=== PATIENT | male | born 1980 | race African-American/Black ===

== ENCOUNTER 2018-01-16 12:24 | Emergency (ER) | payer OTHER, MEDICARE ==
[~2018-01-16] VITALS: Ht 200.7 cm; Wt 104.3 kg
[~2018-01-16 12:24] MED LIST: AMLODIPINE BESY10 M1 PO; ASPIRIN81 M4 PO; CARVEDILOL25 M1 PO; CRESTOR20 M2 PO; DILAUDID2 M1 PO; FERROUS SULFAT325 M3 PO; HUMALOG KW100 UNIT/1 SC; HYDROCHLOROTHIA25 M1 PO; LEVEMIR FL100 UNIT/1 SC; LISINOPRIL40 M1 PO; NEXIUM40 M1 PO; TRAZODONE HCL50 M1 PO
--- NOTE | 2018-01-16 12:51 | ED GENERAL ADULT ---
History of Present Illness General Chief Complaint: General Adult Stated Complaint: HYPERGLYCEMIA Source: patient, old records Exam Limitations: no limitations Vital Signs & Intake/Output Vital Signs & Intake/Output Vital Signs Date Time Temp Pulse Resp B/P B/P Pulse O2 O2 Flow FiO2 Mean Ox Delivery Rate 01/16 1651 93 Room Air 01/16 1619 98.6 89 20 153/91 93 Room Air 01/16 1231 98.7 101 18 173/106 97 Room Air Allergies Coded Allergies: tomato (Severe, ANAPHYLAXIS 01/14/18) pregabalin (From LYRICA) (Intermediate, AMS 01/14/18) atorvastatin (From LIPITOR) (LEUKOCYTOSIS 01/14/18) duloxetine (HALLUCINATIONS 01/14/18) heparin (porcine) (N/V 01/14/18) insulin isophane (NPH) (From HUMULIN N NPH U-100 INSULIN) (ITCHING 01/14/18) ketorolac (HIVES, RASH 01/14/18) naproxen (DIARRHEA 01/14/18) nitroglycerin (N/V 01/14/18) pineapple (TURNS TONGUE PURPLE 01/14/18) tramadol (N/V 01/14/18) hydromorphone (From DILAUDID) (Mild, NAUSEA 01/14/18) Reconcile Medications Amlodipine Besylate 10 MG TABLET 1 TAB PO DAILY HEART (Reported) Aspirin (Aspirin*) 81 MG TAB.CHEW 1 TAB PO DAILY HEART HEALTH (Reported) Carvedilol 25 MG TABLET 1 TAB PO BID HEART (Reported) Esomeprazole (Nexium) 40 MG CAPSULE.DR 1 CAP PO DAILY GI (Reported) Ferrous Sulfate 325 MG (65 MG IRON) TABLET 1 TAB PO DAILY IRON, VITAMIN ( Reported) Hydrochlorothiazide 25 MG TABLET 1 TAB PO DAILY WATER RETENTION (Reported) Hydromorphone HCl (Dilaudid) 2 MG TABLET 1 TAB PO Q8P PRN BACK PAIN Insulin Detemir (Levemir Flextouch) 100 UNIT/ML (3 ML) INSULN.PEN 6 UNITS SC QPM DIABETES (Reported) Insulin Lispro (Humalog Kwikpen U-100) 100 UNIT/ML INSULN.PEN 25 UNITS SC TID DIABETES (Reported) Lisinopril 40 MG TABLET 1 TAB PO DAILY HEART (Reported) Rosuvastatin Calcium (Crestor) 20 MG TABLET 1 TAB PO QPM CHOLESTEROL ( Reported) Trazodone HCl 50 MG TABLET 1 TAB PO QPM SLEEP (Reported) Triage Note: PT COMING FROM HOME. PER EMS PT STATED THAT HE TOOK HIS BG THIS AM AND THE METER READ "HIGH". PT REPORTS POLYURIA AND DECREASED APPETITE. PT ALSO REPORTS PAIN IN THE LOWER BACK X A FEW DAYS. Triage Nurses Notes Reviewed? yes HPI: This is a morbidly obese 37-year-old male with history of insulin-dependent diabetes complicated by frequent asymptomatic hyperglycemia, multiple lower limb amputations including a right AKA, left great toe amputation, prior VT, hypertension, hyperlipidemia, presented to the emergency department from home with hyperglycemia. Patient reports that he has been intermittently noncompliant with his home insulin regimen. He states he did not take insulin this morning. He does endorse some increased thirst and polyuria. He denies any dysuria or urgency. He has had no abdominal pain or nausea or vomiting. He denies any chest pain or difficulty breathing. Patient does complain of lower back pain, notes that he fell a few days ago and hit his lower back on the edge of the couch. He does not endorse any loss of consciousness, headache, neck pain, other injuries. He states that he came to the emergency department "the other day and got some Dilaudid and morphine for my pain; I would like that again today." He states that he has been using Tylenol at home without any relief. He lives in [place] but has sought care here in therapy because he is "done with those people at [facility] " Of note, patient had a negative stress echo in October. There were no ischemic changes. (Sandip Rodriguez MD) Past History Travel History Traveled to [place] past 21 day No Medical History Any Pertinent Medical History? see below for history Cardiovascular: hypertension, hyperlipidemia, myocardial infarction Musculoskeletal: chronic back pain Endocrine: diabetes Surgical History Surgical History: non-contributory Psychosocial History What is your primary language Kuwaiti Tobacco Use: Never used ETOH Use: denies use Illicit Drug Use: denies illicit drug use Family History Hx Contributory? No (Sandip Rodriguez MD) Review of Systems Review of Systems Constitutional: Reports: no symptoms. EENTM: Reports: no symptoms. Respiratory: Reports: no symptoms. Cardiovascular: Reports: no symptoms. GI: Reports: see HPI. Genitourinary: Reports: see HPI. Musculoskeletal: Reports: see HPI. Skin: Reports: no symptoms. Neurological/Psychological: Reports: see HPI. Hematologic/Endocrine: Reports: no symptoms. (Sandip Rodriguez MD) Physical Exam Physical Exam General Appearance: well developed/nourished, no apparent distress, awake, obese Head: atraumatic, normal appearance Eyes: Bilateral: normal appearance. Ears, Nose, Throat: normal pharynx, normal ENT inspection, hearing grossly normal Neck: supple, full range of motion Respiratory: chest non-tender, no respiratory distress, decreased breath sounds Cardiovascular: regular rate/rhythm Gastrointestinal: soft, non-tender Back: normal range of motion, vertebral tenderness Extremities: normal inspection, normal capillary refill, normal range of motion, no edema Neurologic/Psych: no motor/sensory deficits, awake, alert, oriented x 3, inventory checker II- XII nml as tested Skin: intact, warm/dry Comments: Well-appearing 37-year-old male, no acute distress. No increased respiratory rate. No odor of ketones. Neurologically intact and normal. Stump appears clean and dry with no obvious lesions. Left foot appears clean and dry with no obvious lesions. He has intact distal pulses. His abdomen is benign. Lungs are clear. Mucous membranes are moist. Core Measures ACS in differential dx? No CVA/TIA Diagnosis: No Sepsis Present: No Sepsis Focused Exam Completed? No (Sandip Rodriguez MD) Progress Differential Diagnoses I considered the following diagnoses in my evaluation of the patient: Clinically suspect hyperglycemia secondary to dietary indiscretion or undermedication. Low suspicion at this time for acute infectious process given lack of suggestive symptoms or signs on exam. Low suspicion also for acute ischemic/cardiopulmonary process. Patient did fall the other day and has low back pain, low suspicion for acute fracture, however will pursue x-ray with very low pretest probability. Suspicion for acute cauda equina or other spinal lesion. Plan of Care: Orders Procedure Date/time Status FingerStick- Glucose 01/16 1624 Active LACTIC ACID 01/16 1544 Complete EKG 01/16 1245 Active CULTURE,URINE 01/16 1244 Active URINALYSIS 01/16 1244 Complete LACTIC ACID 01/16 1244 Complete COMPREHENSIVE METABOLIC PANEL 01/16 1244 Complete CBC WITHOUT DIFFERENTIAL 01/16 1244 Complete Laboratory Tests 01/16/18 1601: Lactic Acid 1.8 01/16/18 1328: Urine Color STRAW, Urine Clarity CLEAR, Urine pH 6.5, Ur Specific [place] 1.010, Urine Protein NEG, Urine Ketones NEG, Urine Nitrite NEG, Urine Bilirubin NEG, Urine Urobilinogen 0.2, Ur Leukocyte Esterase NEG, Ur Microscopic EXAM NOT REQUIRED, Urine Hemoglobin NEG, Urine Glucose >=1000 H 01/16/18 1323: Anion Gap 13, Estimated GFR > 60, BUN/Creatinine Ratio 15.0, Glucose 765 *H, Lactic Acid 2.8 H, Calcium 9.5, Total Bilirubin 0.3, AST 23, ALT 34, Alkaline Phosphatase 114, Total Protein 7.7, Albumin 4.3, Globulin 3.4, Albumin/Globulin Ratio 1.3, CBC w Diff NO MAN DIFF REQ, RBC 4.84, MCV 74.6 L, MCH 23.2 L, MCHC 31.0 L, RDW 16.9 H, MPV 8.9, Gran % 67.3, Lymphocytes % 24.8, Monocytes % 6.6, Eosinophils % 1.0, Basophils % 0.3, Absolute Granulocytes 6.7 H, Absolute Lymphocytes 2.5, Absolute Monocytes 0.7 H, Absolute Eosinophils 0.1, Absolute Basophils 0 Microbiology 01/16 1328 URINE ROUT: Urine Culture - RECD Plan for labs, IV fluids, small insulin bolus, x-ray lumbar spine, reassessment, likely discharge home. Blood glucose is markedly elevated, sodium is pseudohyponatremia. There are no ketones in the urine, patient well-appearing on reassessment. X-ray is nonacute with what appears to be chronic spondylolisthesis. Mild elevation to lactate likely secondary to mild volume depletion in the setting of diuresis secondary to elevated blood glucose. No infectious findings on urinalysis. Patient well- appearing on reassessment, will administer IV insulin, plan for fluid bolus 2, repeat lactate and repeat glucose, likely discharge home. Blood sugar improved significantly following treatment. Lactate normalizes. Patient well-appearing on reassessment. Patient discharged home with return precautions. He is advised to follow-up with his primary doctor and his manager market development. Initial ED EKG: normal sinus rhythm, no ST T wave changes (Sandip Rodriguez MD) Departure Departure Time of Disposition: 175 Disposition: HOME OR SELF CARE Condition: Stable Clinical Impression Primary Impression: Hyperglycemia due to type 2 diabetes mellitus Referrals: Patient Has No Primary Care Dr (PCP/Family) Additional Instructions: Thank you for coming to [facility] today. I recommend that you continue to take all your medications as previously prescribed and follow-up with your manager market development as soon as possible. In the meantime, please follow-up with your primary care doctor because your blood sugar has been much too high. You can consider returning to the emergency department if your blood sugar proves difficult to control, or you develop any new or worsening symptoms at home. Please eat a diet that is low in carbohydrates/sugar, take your insulin as prescribed, drink plenty of water, avoid sweetened or flavored drinks. Departure Forms: Customer Survey General Discharge Information (Sandip Rodriguez MD) Resident Co-Sign Statement Statement: ED Attending supervision documentation- [] I saw and evaluated the patient. I have also reviewed all the pertinent lab results and diagnostic results. I agree with the findings and the plan of care as documented in the Resident's documentation. [X] I have reviewed the ED Record and agree with the Resident's documentation. [] Additions or exceptions (if any) to the Resident's note and plan are summarized below: [] (Patsy VITAL,Saul Quan) Critical Care Note Critical Care Note Critical Care Time: non-applicable (Sandip Rodriguez MD)
[2018-01-16 13:59] LABS: ABSOLUTE BASOPHIL COUNT 0 /CUMM (0.0-0.2); ABSOLUTE EOSINOPHIL COUNT 0.1 /CUMM (0.0-0.7); ABSOLUTE GRANULOCYTE CT 6.7 /CUMM (1.4-6.5); ABSOLUTE LYMPH COUNT 2.5 /CUMM (1.2-3.4); ABSOLUTE MONOCYTE COUNT 0.7 /CUMM (0.10-0.60); BASOPHIL % 0.3 % (0.0-2.0); GRANULOCYTE % 67.3 % (42.2-75.2); HEMATOCRIT 36.1 % (42-52); MEAN CORPUSCULAR HGB 23.2 PG (27.0-31.0); MEAN CORPUSCULAR VOLUME 74.6 FL (80.0-94.0); MEAN PLATELET VOLUME 8.9 FL (7.4-10.4); PLATELET COUNT 401 /CUMM (130-400); RBC DISTRIBUTION WIDTH 16.9 % (11.5-14.5); RED BLOOD CELL CT 4.84 /CUMM (4.70-6.10)
--- NOTE | 2018-01-16 14:43 | RADIOLOGY REPORT ---
EXAMINATION: XR LUMBOSACRAL SPINE CLINICAL INFORMATION: Bilateral L5 spondylolisthesis COMPARISON: None TECHNIQUE: AP and lateral views of the lumbosacral spine were obtained. FINDINGS: Bilateral pars defects are present at L5. There is minimal anterolisthesis of L5 on S1. Vertebral body heights are normal. No fractures. Intervertebral disc heights are relatively well-preserved. Soft tissues are unremarkable. Bone mineralization is normal. IMPRESSION: No acute fracture or acute malalignment. Bilateral L5 spondylolysis with grade 1 anterolisthesis of L5 on S1, likely chronic.
[2018-01-16 16:19] VITALS: BP 153/91
== END 2018-01-16 18:05 ==
LOC: ERH 12:24
PROVIDERS: Student in an Organized Health Care Education/Training Program
DX: E11.65 Type 2 diabetes mellitus with hyperglycemia (principal)
CPT/HCPCS: 72100; 81003; 87086; 93005; 93010; 96361; 96374; 96375; J2405

== ENCOUNTER 2018-01-22 01:04 | Emergency (ER) | payer OTHER, MEDICARE ==
[~2018-01-22] VITALS: Ht 200.7 cm; Wt 104.3 kg
[2018-01-22 04:20] LABS: ABSOLUTE BASOPHIL COUNT 0 /CUMM (0.0-0.2); ABSOLUTE EOSINOPHIL COUNT 0.1 /CUMM (0.0-0.7); ABSOLUTE LYMPH COUNT 3.3 /CUMM (1.2-3.4); ABSOLUTE MONOCYTE COUNT 0.6 /CUMM (0.10-0.60); BASOPHIL % 0.3 % (0.0-2.0); EOSINOPHIL % 1.1 % (0-5); GRANULOCYTE % 59.6 % (42.2-75.2); HEMATOCRIT 33.3 % (42-52); MEAN CORPUSCULAR HGB 23.7 PG (27.0-31.0); MEAN CORPUSCULAR HGB CONC 31.9 G/DL (33.0-37.0); MEAN CORPUSCULAR VOLUME 74.2 FL (80.0-94.0); MEAN PLATELET VOLUME 9.1 FL (7.4-10.4); PLATELET COUNT 379 /CUMM (130-400); RED BLOOD CELL CT 4.49 /CUMM (4.70-6.10)
--- NOTE | 2018-01-22 05:03 | ED GENERAL ADULT ---
History of Present Illness General Chief Complaint: General Adult Stated Complaint: HIGH BLOOD SUGAR Source: patient, old records, EMS Exam Limitations: no limitations Vital Signs & Intake/Output Vital Signs & Intake/Output Vital Signs Date Time Temp Pulse Resp B/P B/P Pulse O2 O2 Flow FiO2 Mean Ox Delivery Rate 01/22 0549 98.5 103 20 193/102 99 Room Air 01/22 0111 99.3 107 18 204/102 98 Room Air Allergies Coded Allergies: tomato (Severe, ANAPHYLAXIS 01/14/18) pregabalin (From LYRICA) (Intermediate, AMS 01/14/18) atorvastatin (From LIPITOR) (LEUKOCYTOSIS 01/14/18) duloxetine (HALLUCINATIONS 01/14/18) heparin (porcine) (N/V 01/14/18) insulin isophane (NPH) (From HUMULIN N NPH U-100 INSULIN) (ITCHING 01/14/18) ketorolac (HIVES, RASH 01/14/18) naproxen (DIARRHEA 01/14/18) nitroglycerin (N/V 01/14/18) pineapple (TURNS TONGUE PURPLE 01/14/18) tramadol (N/V 01/14/18) hydromorphone (From DILAUDID) (Mild, NAUSEA 01/14/18) Reconcile Medications Amlodipine Besylate 10 MG TABLET 1 TAB PO DAILY HEART (Reported) Aspirin (Aspirin*) 81 MG TAB.CHEW 1 TAB PO DAILY HEART HEALTH (Reported) Carvedilol 25 MG TABLET 1 TAB PO BID HEART (Reported) Esomeprazole (Nexium) 40 MG CAPSULE.DR 1 CAP PO DAILY GI (Reported) Ferrous Sulfate 325 MG (65 MG IRON) TABLET 1 TAB PO DAILY IRON, VITAMIN ( Reported) Hydrochlorothiazide 25 MG TABLET 1 TAB PO DAILY WATER RETENTION (Reported) Hydromorphone HCl (Dilaudid) 2 MG TABLET 1 TAB PO Q8P PRN BACK PAIN Insulin Detemir (Levemir Flextouch) 100 UNIT/ML (3 ML) INSULN.PEN 6 UNITS SC QPM DIABETES (Reported) Insulin Lispro (Humalog Kwikpen U-100) 100 UNIT/ML INSULN.PEN 25 UNITS SC TID DIABETES (Reported) Lisinopril 40 MG TABLET 1 TAB PO DAILY HEART (Reported) Rosuvastatin Calcium (Crestor) 20 MG TABLET 1 TAB PO QPM CHOLESTEROL ( Reported) Trazodone HCl 50 MG TABLET 1 TAB PO QPM SLEEP (Reported) Triage Note: PT BIBA FROM HOME FOR HIGH SUGAR. PT STATES HIS METER READ"HIGH". HE TOOK HIS 70 UNITS OF LEVEMIR PRESCRIBED & IT DIDNT COME DOWN. FINGERSTICK ON ARRIVAL WAS >500 Triage Nurses Notes Reviewed? yes Onset: Just prior to arrival Duration: constant, continues in ED Timing: recent history Injury Environment: home Severity: severe No Modifying Factors: none Associated Symptoms: back pain HPI: One week prior to admission patient reports he has been having difficulty controlling his blood sugar. Prior to admission his leg sugar was greater than 500. He complains of musculoskeletal back pain. He denies fever chills nausea vomiting diarrhea abdominal pain chest pain shortness of breath headache dysuria rash bleeding. Past History Travel History Traveled to [place] past 21 day No Medical History Any Pertinent Medical History? see below for history Cardiovascular: hypertension, hyperlipidemia, myocardial infarction Musculoskeletal: chronic back pain Endocrine: diabetes Surgical History Surgical History: non-contributory Psychosocial History What is your primary language Greek Tobacco Use: Never used ETOH Use: denies use Illicit Drug Use: denies illicit drug use Family History Hx Contributory? No Review of Systems Review of Systems Constitutional: Reports: no symptoms. EENTM: Reports: no symptoms. Respiratory: Reports: no symptoms. Cardiovascular: Reports: no symptoms. GI: Reports: no symptoms. Genitourinary: Reports: no symptoms. Musculoskeletal: Reports: see HPI, back pain. Skin: Reports: no symptoms. Neurological/Psychological: Reports: no symptoms. Hematologic/Endocrine: Reports: no symptoms. Immunologic/Allergic: Reports: no symptoms. All Other Systems: Reviewed and Negative Physical Exam Physical Exam General Appearance: well developed/nourished, alert, awake, anxious, mild distress, obese Head: atraumatic, normal appearance Eyes: Bilateral: normal appearance, PERRL, EOMI. Ears, Nose, Throat: normal pharynx, normal ENT inspection, hearing grossly normal Neck: normal inspection, supple, full range of motion, no midline tenderness Respiratory: normal breath sounds, chest non-tender, no respiratory distress, quiet respiration, lungs clear Cardiovascular: regular rate/rhythm, normal peripheral pulses, norml femoral pulses equa Peripheral Pulses: 4+ carotid (R), 4+ carotid (L) Gastrointestinal: normal bowel sounds, soft, non-tender, no organomegaly Back: normal inspection, normal range of motion, no vertebral tenderness Extremities: normal inspection, normal capillary refill, normal range of motion, no edema Neurologic/Psych: no motor/sensory deficits, awake, alert, oriented x 3, normal gait, normal mood/affect, beer brewer II-XII nml as tested Reflexes: 2+: bicep (R), bicep (L). Skin: intact, normal color, warm/dry Lymphatic: no anterior cervical alma rosa Core Measures ACS in differential dx? No CVA/TIA Diagnosis: No Sepsis Present: No Sepsis Focused Exam Completed? No Progress Differential Diagnoses I considered the following diagnoses in my evaluation of the patient: DKA hyperglycemia pancreatitis. Plan of Care: Orders Procedure Date/time Status MIXED VENOUS BLOOD GAS (GEN) 01/22 129 Active LIPASE 01/22 129 Complete COMPREHENSIVE METABOLIC PANEL 01/22 129 Complete CBC WITHOUT DIFFERENTIAL 01/22 129 Complete ACETONE 01/22 129 Complete Current Medications Sig/Yair Start time Last Medication Dose Stop Time Status Admin Sodium Chloride 1,000 ML BOLUS ONE 01/22 0600 AC (Normal Saline 0.9%) 01/22 0659 Laboratory Tests 01/22/18 0411: Anion Gap 12, Estimated GFR > 60, BUN/Creatinine Ratio 13.8, Glucose 654 *H, Calcium 9.3, Total Bilirubin 0.4, AST 32, ALT 34, Alkaline Phosphatase 103, Total Protein 7.4, Albumin 4.1, Globulin 3.3, Albumin/Globulin Ratio 1.2, Lipase 76, CBC w Diff NO MAN DIFF REQ, RBC 4.49 L, MCV 74.2 L, MCH 23.7 L, MCHC 31.9 L, RDW 17.0 H, MPV 9.1, Gran % 59.6, Lymphocytes % 32.9, Monocytes % 6.1, Eosinophils % 1.1, Basophils % 0.3, Absolute Granulocytes 6.0, Absolute Lymphocytes 3.3, Absolute Monocytes 0.6, Absolute Eosinophils 0.1, Absolute Basophils 0, Acetone Level NEGATIVE Diagnostic Imaging: Viewed by Me: Radiology Read. Discussed w/RAD: Radiology Read. CXR Impression: no acute abnormality, no infiltrates Initial ED EKG: none Departure Departure Disposition: HOME OR SELF CARE Condition: Stable Clinical Impression Primary Impression: Hyperglycemia without ketosis Referrals: Patient Has No Primary Care Dr (PCP/Family) Departure Forms: Customer Survey General Discharge Information Critical Care Note Critical Care Note Critical Care Time: 30-74 min (50)
--- NOTE | 2018-01-22 05:31 | RADIOLOGY REPORT ---
EXAMINATION: XR CHEST CLINICAL INFORMATION: Hyperglycemia. Wheezing. COMPARISON: None TECHNIQUE: 2 views of the chest were obtained. FINDINGS: The lungs are well expanded. There is no focal consolidation, edema, or effusion. No pneumothorax. The cardiomediastinal silhouette is within normal limits. No acute osseous abnormality. IMPRESSION: No acute pulmonary findings.
[2018-01-22 09:56] VITALS: BP 156/84
== END 2018-01-22 10:14 ==
LOC: ERH 01:04
PROVIDERS: Emergency Medicine
DX: E11.65 Type 2 diabetes mellitus with hyperglycemia (principal); M54.9 Dorsalgia, unspecified; I10 Essential (primary) hypertension; Z79.4 Long term (current) use of insulin
CPT/HCPCS: 71046; 96361; 96372; 96374; 96375; 96376; 99291; J1815

== ENCOUNTER 2018-01-22 14:44 | Emergency (ER) | payer OTHER, MEDICARE ==
--- NOTE | 2018-01-22 15:44 | ED GENERAL ADULT ---
History of Present Illness General Chief Complaint: General Adult Stated Complaint: BIBA HIGH BS,HIGH BP Source: patient, EMS Exam Limitations: no limitations Vital Signs & Intake/Output Vital Signs & Intake/Output PT REFUSED Allergies Coded Allergies: tomato (Severe, ANAPHYLAXIS 01/14/18) pregabalin (From LYRICA) (Intermediate, AMS 01/14/18) atorvastatin (From LIPITOR) (LEUKOCYTOSIS 01/14/18) duloxetine (HALLUCINATIONS 01/14/18) heparin (porcine) (N/V 01/14/18) insulin isophane (NPH) (From HUMULIN N NPH U-100 INSULIN) (ITCHING 01/14/18) ketorolac (HIVES, RASH 01/14/18) naproxen (DIARRHEA 01/14/18) nitroglycerin (N/V 01/14/18) pineapple (TURNS TONGUE PURPLE 01/14/18) tramadol (N/V 01/14/18) hydromorphone (From DILAUDID) (Mild, NAUSEA 01/14/18) Reconcile Medications Amlodipine Besylate 10 MG TABLET 1 TAB PO DAILY HEART (Reported) Aspirin (Aspirin*) 81 MG TAB.CHEW 1 TAB PO DAILY HEART HEALTH (Reported) Carvedilol 25 MG TABLET 1 TAB PO BID HEART (Reported) Esomeprazole (Nexium) 40 MG CAPSULE.DR 1 CAP PO DAILY GI (Reported) Ferrous Sulfate 325 MG (65 MG IRON) TABLET 1 TAB PO DAILY IRON, VITAMIN ( Reported) Hydrochlorothiazide 25 MG TABLET 1 TAB PO DAILY WATER RETENTION (Reported) Hydromorphone HCl (Dilaudid) 2 MG TABLET 1 TAB PO Q8P PRN BACK PAIN Insulin Detemir (Levemir Flextouch) 100 UNIT/ML (3 ML) INSULN.PEN 6 UNITS SC QPM DIABETES (Reported) Insulin Lispro (Humalog Kwikpen U-100) 100 UNIT/ML INSULN.PEN 25 UNITS SC TID DIABETES (Reported) Lisinopril 40 MG TABLET 1 TAB PO DAILY HEART (Reported) Rosuvastatin Calcium (Crestor) 20 MG TABLET 1 TAB PO QPM CHOLESTEROL ( Reported) Trazodone HCl 50 MG TABLET 1 TAB PO QPM SLEEP (Reported) Triage Note: 37M RETURNS TO ED FROM THIS AM BY AMBULANCE FOR ELEVATED BS, TO WAITING ROOM AND EXPLOSIVE AND ABUSIVE TO STAFF. CONTINUOUSLY THREATENING AND DEMANDING TO SPEAK WITH CHARGE WHO SPOKE TO PT ABOUT HIS OPTIONS. AGREEABLE TO CHECK IN AND BE SEEN. IMMEDIATELY AFTER CHECKING IN, BECAME EXPLOSIVE AND THREATENING AGAIN AND DEMANDING WE CALL HIM A RIDE BACK TO [facility]. SECURITY OFFERED TO ASSIST PT TO BUS STOP WHERE PT PLANS TO CALL 911 TO BE BROUGHT TO [facility] VIA AMBULANCE. DR PIRES AWARE OF SITUATION, AND WAS MD WHO DISCHARGED HIM THIS AM AND OK WITH PT LEAVING HE IS SAFE AND STABLE AT THIS TIME AND WE ARE UNABLE TO TREAT HIM HE IS REFUSING CARE. Triage Nurses Notes Reviewed? yes HPI: Patient was seen here earlier this morning for hyperglycemia nonketotic state. Patient's blood sugar improved and the patient received his insulin including Levemir as well as Humalog. Patient was subsequently discharged home. While at home his blood sugar continued to rise so patient called 911. In the emergency waiting room patient became very irritated that he would have to wait since he had come back. Patient finally stated that he was going to go outside and call 911 and go to another facility. Patient is awake alert and oriented 3. Past History Travel History Traveled to [place] past 21 day No Medical History Any Pertinent Medical History? see below for history Neurological: NONE EENT: NONE Cardiovascular: hypertension, hyperlipidemia, myocardial infarction Respiratory: NONE Gastrointestinal: NONE Hepatic: NONE Renal: NONE Musculoskeletal: chronic back pain Psychiatric: NONE Endocrine: diabetes Blood Disorders: NONE Surgical History Surgical History: non-contributory Psychosocial History What is your primary language Armenian Tobacco Use: Refused to answer Family History Hx Contributory? No Review of Systems Review of Systems Constitutional: Reports: see HPI. Respiratory: Reports: no symptoms. Cardiovascular: Reports: no symptoms. Neurological/Psychological: Reports: no symptoms. Physical Exam Physical Exam General Appearance: well developed/nourished, alert, awake Eyes: Bilateral: PERRL, EOMI. Neurologic/Psych: no motor/sensory deficits, awake, alert, oriented x 3, normal mood/affect Core Measures ACS in differential dx? No CVA/TIA Diagnosis: No Sepsis Present: No Sepsis Focused Exam Completed? No Progress Differential Diagnoses I considered the following diagnoses in my evaluation of the patient: [ Hyperglycemia] Plan of Care: Patient left the emergency department prior to workup. Initial ED EKG: none Departure Departure Disposition: ER WALKOUT Condition: Stable Clinical Impression Primary Impression: Hyperglycemia Referrals: Patient Has No Primary Care Dr (PCP/Family) Departure Forms: Customer Survey General Discharge Information Critical Care Note Critical Care Note Critical Care Time: non-applicable
== END 2018-01-22 14:53 | disposition admitted as inpatient to this hospital (09) ==
LOC: ERH 14:44
DX: R73.9 Hyperglycemia, unspecified (principal); R03.0 Elevated blood-pressure reading, without diagnosis of hypertension

== ENCOUNTER 2018-03-04 00:57 | Emergency (ER) | payer OTHER, MEDICARE ==
[~2018-03-04] VITALS: Ht 200.7 cm; Wt 102.1 kg
--- NOTE | 2018-03-04 01:03 | ED GENERAL ADULT ---
History of Present Illness General Chief Complaint: General Adult Stated Complaint: BIBA HYPERGLYCEMIA Source: patient, old records, EMS Exam Limitations: no limitations Vital Signs & Intake/Output Vital Signs & Intake/Output Vital Signs Date Time Temp Pulse Resp B/P B/P Pulse O2 O2 Flow FiO2 Mean Ox Delivery Rate 03/04 0710 104 18 164/95 100 Room Air 03/04 0643 Room Air 03/04 0528 101 18 137/64 98 Room Air 03/04 0240 Room Air 03/04 0205 98.4 101 20 158/101 99 Room Air Allergies Coded Allergies: tomato (Severe, ANAPHYLAXIS 01/14/18) pregabalin (From LYRICA) (Intermediate, AMS 01/14/18) atorvastatin (From LIPITOR) (LEUKOCYTOSIS 01/14/18) duloxetine (HALLUCINATIONS 01/14/18) heparin (porcine) (N/V 01/14/18) insulin isophane (NPH) (From HUMULIN N NPH U-100 INSULIN) (ITCHING 01/14/18) ketorolac (HIVES, RASH 01/14/18) naproxen (DIARRHEA 01/14/18) nitroglycerin (N/V 01/14/18) pineapple (TURNS TONGUE PURPLE 01/14/18) tramadol (N/V 01/14/18) hydromorphone (From DILAUDID) (Mild, NAUSEA 01/14/18) Reconcile Medications Amlodipine Besylate 10 MG TABLET 1 TAB PO DAILY HEART (Reported) Aspirin (Aspirin*) 81 MG TAB.CHEW 1 TAB PO DAILY HEART HEALTH (Reported) Carvedilol 25 MG TABLET 1 TAB PO BID HEART (Reported) Esomeprazole (Nexium) 40 MG CAPSULE.DR 1 CAP PO DAILY GI (Reported) Ferrous Sulfate 325 MG (65 MG IRON) TABLET 1 TAB PO DAILY IRON, VITAMIN ( Reported) Hydrochlorothiazide 25 MG TABLET 1 TAB PO DAILY WATER RETENTION (Reported) Hydromorphone HCl (Dilaudid) 2 MG TABLET 1 TAB PO Q8P PRN BACK PAIN Insulin Detemir (Levemir Flextouch) 100 UNIT/ML (3 ML) INSULN.PEN 6 UNITS SC QPM DIABETES (Reported) Insulin Lispro (Humalog Kwikpen U-100) 100 UNIT/ML INSULN.PEN 25 UNITS SC TID DIABETES (Reported) Lisinopril 40 MG TABLET 1 TAB PO DAILY HEART (Reported) Rosuvastatin Calcium (Crestor) 20 MG TABLET 1 TAB PO QPM CHOLESTEROL ( Reported) Trazodone HCl 50 MG TABLET 1 TAB PO QPM SLEEP (Reported) Triage Nurses Notes Reviewed? yes HPI: Patient presents to the emergency department with 3 complaints. His first complaint is hyperglycemia. Patient states his blood sugar has been running high over the past few days. The patient's other complaint is diffuse fatty itchy rash that has been present for the past week or 2. He denies any new medications or new G zoroastrian and her new foods. There are no fevers or chills. There is no pain. There is no shortness of breath. Patient's other complaint is low back pain which is chronic. The pain increased with movement. There is no radiation. The pain is aching and throbbing in nature. He rates the pain is 10 out of 10. (Patsy VITAL,Saul Quan) Past History Travel History Traveled to [place] past 21 day No Medical History Any Pertinent Medical History? see below for history Neurological: NONE EENT: NONE Cardiovascular: hypertension, hyperlipidemia, myocardial infarction Respiratory: NONE Gastrointestinal: NONE Hepatic: NONE Renal: NONE Musculoskeletal: chronic back pain Psychiatric: NONE Endocrine: diabetes Blood Disorders: NONE Surgical History Surgical History: non-contributory Psychosocial History What is your primary language Italian Tobacco Use: Quit >30 days ago ETOH Use: occasional use Illicit Drug Use: denies illicit drug use Family History Hx Contributory? No (Patsy VITAL,Saul Quan) Review of Systems Review of Systems Constitutional: Reports: no symptoms. EENTM: Reports: no symptoms. Respiratory: Reports: no symptoms. Cardiovascular: Reports: no symptoms. GI: Reports: no symptoms. Genitourinary: Reports: no symptoms. Musculoskeletal: Reports: see HPI, back pain. Skin: Reports: see HPI, rash. Neurological/Psychological: Reports: no symptoms. Hematologic/Endocrine: Reports: no symptoms. Immunologic/Allergic: Reports: no symptoms. All Other Systems: Reviewed and Negative (Patsy VITAL,Saul Quan) Physical Exam Physical Exam General Appearance: well developed/nourished, alert, awake, mild distress Head: atraumatic, normal appearance Eyes: Bilateral: PERRL, EOMI. Ears, Nose, Throat: normal pharynx, normal ENT inspection, hearing grossly normal Neck: normal inspection, supple, full range of motion Respiratory: normal breath sounds, chest non-tender, no respiratory distress, lungs clear Cardiovascular: regular rate/rhythm, normal peripheral pulses Gastrointestinal: normal bowel sounds, soft, non-tender, no organomegaly Back: normal inspection, normal range of motion, muscle spasm, no vertebral tenderness Extremities: normal inspection, normal capillary refill, LEFT BKA Neurologic/Psych: awake, alert, oriented x 3, normal mood/affect Skin: rash Core Measures ACS in differential dx? No CVA/TIA Diagnosis: No Sepsis Present: No Sepsis Focused Exam Completed? No (Patsy VITAL,Saul Quan) Progress Differential Diagnoses I considered the following diagnoses in my evaluation of the patient: [ Hypoglycemia, electrolyte abnormality, muscle spasm, nonspecific rash] Plan of Care: Orders Procedure Date/time Status Regular Diet 03/04 B Active TROPONIN LEVEL 03/04 102 Complete COMPREHENSIVE METABOLIC PANEL 03/04 102 Complete CBC WITHOUT DIFFERENTIAL 03/04 102 Complete ACETONE 03/04 102 Complete EKG 03/04 102 Active Laboratory Tests 03/04/18 0239: Anion Gap 12, Estimated GFR > 60, BUN/Creatinine Ratio 8.8, Glucose 436 H, Calcium 8.6, Total Bilirubin 0.2, AST 30, ALT 34, Alkaline Phosphatase 83, Troponin I < 0.01, Total Protein 6.8, Albumin 3.8, Globulin 3.0, Albumin/ Globulin Ratio 1.3, CBC w Diff NO MAN DIFF REQ, RBC 4.34 L, MCV 75.5 L, MCH 23.6 L, MCHC 31.2 L, RDW 16.9 H, MPV 8.4, Gran % 62.7, Lymphocytes % 27.4, Monocytes % 8.2, Eosinophils % 1.4, Basophils % 0.3, Absolute Granulocytes 7.3 H, Absolute Lymphocytes 3.2, Absolute Monocytes 0.9 H, Absolute Eosinophils 0.2 , Absolute Basophils 0, Acetone Level NEGATIVE Initial ED EKG: sINUS TACHYCARDIA AT 102, NONSPECIFIC st-t CHANGES. nO CHANGE FROM PRIOR ekg. Prior EKG: unchanged Hand-Off Endorsed To: Al Marquez MD Endorsed Time: 710 Pending: labs (Patsy VITAL,Saul Quan) Comments: Patient was seen and evaluated by Dr. Garner. Dr. Garner discharged patient. I was not involved in patient care. Refer to patient note for further information. (Alma VITAL, Al) Departure Departure Disposition: HOME OR SELF CARE Condition: Stable Clinical Impression Primary Impression: Hyperglycemia Secondary Impressions: Back pain, Rash Referrals: Patient Has No Primary Care Dr (PCP/Family) Additional Instructions: RETURN FOR ANY CONCERNS Departure Forms: Customer Survey General Discharge Information (Patsy VITAL,Saul Quan) Critical Care Note Critical Care Note Critical Care Time: non-applicable (Patsy VITAL,Saul Quan)
[2018-03-04 02:48] LABS: ABSOLUTE BASOPHIL COUNT 0 /CUMM (0.0-0.2); ABSOLUTE EOSINOPHIL COUNT 0.2 /CUMM (0.0-0.7); ABSOLUTE GRANULOCYTE CT 7.3 /CUMM (1.4-6.5); ABSOLUTE LYMPH COUNT 3.2 /CUMM (1.2-3.4); ABSOLUTE MONOCYTE COUNT 0.9 /CUMM (0.10-0.60); BASOPHIL % 0.3 % (0.0-2.0); EOSINOPHIL % 1.4 % (0-5); GRANULOCYTE % 62.7 % (42.2-75.2); HEMATOCRIT 32.7 % (42-52); MEAN CORPUSCULAR HGB 23.6 PG (27.0-31.0); MEAN CORPUSCULAR HGB CONC 31.2 G/DL (33.0-37.0); MEAN CORPUSCULAR VOLUME 75.5 FL (80.0-94.0); MEAN PLATELET VOLUME 8.4 FL (7.4-10.4); PLATELET COUNT 328 /CUMM (130-400); RBC DISTRIBUTION WIDTH 16.9 % (11.5-14.5); RED BLOOD CELL CT 4.34 /CUMM (4.70-6.10); WHITE BLOOD CELL COUNT 11.6 /CUMM (4.8-10.8)
[2018-03-04 07:10] VITALS: BP 164/95
== END 2018-03-04 09:55 ==
LOC: ERH 00:57
PROVIDERS: Emergency Medicine
DX: E11.65 Type 2 diabetes mellitus with hyperglycemia (principal); R21 Rash and other nonspecific skin eruption; M54.5 Low back pain; Z79.4 Long term (current) use of insulin; I10 Essential (primary) hypertension; Z87.891 Personal history of nicotine dependence; Z79.82 Long term (current) use of aspirin
CPT/HCPCS: 93005; 93010; 96361; 96374; 96376

== ENCOUNTER 2018-03-05 00:31 | Emergency (ER) | payer OTHER, MEDICARE ==
[~2018-03-05] VITALS: Ht 200.7 cm; Wt 99.8 kg
--- NOTE | 2018-03-05 01:16 | ED GENERAL ADULT ---
History of Present Illness General Chief Complaint: General Adult Stated Complaint: HYPOGLYCEMIA Source: patient, old records, EMS Exam Limitations: no limitations Vital Signs & Intake/Output Vital Signs & Intake/Output Vital Signs Date Time Temp Pulse Resp B/P B/P Pulse O2 O2 Flow FiO2 Mean Ox Delivery Rate 03/05 0345 98.5 100 18 166/88 99 Room Air 03/05 0039 99 Room Air 03/05 0033 98.9 109 18 147/87 96 Room Air Allergies Coded Allergies: tomato (Severe, ANAPHYLAXIS 01/14/18) pregabalin (From LYRICA) (Intermediate, AMS 01/14/18) atorvastatin (From LIPITOR) (LEUKOCYTOSIS 01/14/18) duloxetine (HALLUCINATIONS 01/14/18) heparin (porcine) (N/V 01/14/18) insulin isophane (NPH) (From HUMULIN N NPH U-100 INSULIN) (ITCHING 01/14/18) ketorolac (HIVES, RASH 01/14/18) naproxen (DIARRHEA 01/14/18) nitroglycerin (N/V 01/14/18) pineapple (TURNS TONGUE PURPLE 01/14/18) tramadol (N/V 01/14/18) hydromorphone (From DILAUDID) (Mild, NAUSEA 01/14/18) Reconcile Medications Amlodipine Besylate 10 MG TABLET 1 TAB PO DAILY HEART (Reported) Aspirin (Aspirin*) 81 MG TAB.CHEW 1 TAB PO DAILY HEART HEALTH (Reported) Carvedilol 25 MG TABLET 1 TAB PO BID HEART (Reported) Esomeprazole (Nexium) 40 MG CAPSULE.DR 1 CAP PO DAILY GI (Reported) Ferrous Sulfate 325 MG (65 MG IRON) TABLET 1 TAB PO DAILY IRON, VITAMIN ( Reported) Hydrochlorothiazide 25 MG TABLET 1 TAB PO DAILY WATER RETENTION (Reported) Hydromorphone HCl (Dilaudid) 2 MG TABLET 1 TAB PO Q8P PRN BACK PAIN Insulin Detemir (Levemir Flextouch) 100 UNIT/ML (3 ML) INSULN.PEN 6 UNITS SC QPM DIABETES (Reported) Insulin Lispro (Humalog Kwikpen U-100) 100 UNIT/ML INSULN.PEN 25 UNITS SC TID DIABETES (Reported) Lisinopril 40 MG TABLET 1 TAB PO DAILY HEART (Reported) Rosuvastatin Calcium (Crestor) 20 MG TABLET 1 TAB PO QPM CHOLESTEROL ( Reported) Trazodone HCl 50 MG TABLET 1 TAB PO QPM SLEEP (Reported) Triage Note: PT BIBA FROM HOME C/O HYPOGLYCEMIA. PT STATES HE CHECKED BSG 2000, 450 BSG. PT THEN MEDICATED WITH 10UNITS NOVOLOG, PT THEN CHECKED IT AT 2200, 74. PT DRANK GINGERALE TO HELP. PT STATES "AFTER I DRANK THAT I WAS BETTER, JUST WANTED TO COME HERE FOR MONITORING" PTS BSG ON ARRIVAL, 84. Triage Nurses Notes Reviewed? yes HPI: Patient presents for evaluation of low blood sugar. Patient states he was just treated at another hospital for high blood sugar. Tonight he states his blood sugar dropped into the 50s. He states he drank soda and it increased into the 80s. He states he has maintained a normal SD interval intake and has been compliant with his NovoLog and TRACEBA. He denies cold symptoms. In addition he is complaining of back pain that has been present over the past 2 days. He denies any prior back pain episodes. Past History Travel History Traveled to [place] past 21 day No Medical History Any Pertinent Medical History? see below for history Neurological: NONE EENT: NONE Cardiovascular: hypertension, hyperlipidemia, myocardial infarction Respiratory: NONE Gastrointestinal: NONE Hepatic: NONE Renal: NONE Musculoskeletal: chronic back pain Psychiatric: NONE Endocrine: diabetes Blood Disorders: NONE Surgical History Surgical History: non-contributory Psychosocial History What is your primary language Stateless Tobacco Use: Never used Family History Hx Contributory? No Review of Systems Review of Systems Constitutional: Reports: no symptoms. EENTM: Reports: no symptoms. Respiratory: Reports: no symptoms. Cardiovascular: Reports: no symptoms. GI: Reports: no symptoms. Genitourinary: Reports: no symptoms. Musculoskeletal: Reports: see HPI. Skin: Reports: no symptoms. Neurological/Psychological: Reports: no symptoms. Hematologic/Endocrine: Reports: see HPI. Immunologic/Allergic: Reports: no symptoms. All Other Systems: Reviewed and Negative Physical Exam Physical Exam General Appearance: SEE BELOW Comments: Gen.: Well-nourished, well-developed, no acute respiratory distress. Head: Normocephalic, atraumatic. Eyes: Normal inspection bilaterally Ears: Normal inspection bilaterally Nose: Normal inspection Throat/mouth : Moist mucosa Neck: Supple, full range of motion, no goiter Heart: Regular rate and rhythm, no murmurs rubs or gallops Lungs: Clear to auscultation bilaterally with normal air entry Chest: Nontender Back: Bilateral paraspinal lumbar muscle tenderness without soft tissue swelling ecchymoses or erythema Abdomen: Soft, nontender, nondistended, normal bowel sounds Extremities: Right AKA, left lower extremity examination unremarkable. Neurologic: Cranial nerves grossly intact, speech is clear Skin: warm and dry Psychiatric: Calm, cooperative, no apparent delusions or hallucinations Core Measures ACS in differential dx? No CVA/TIA Diagnosis: No Sepsis Present: No Sepsis Focused Exam Completed? No Progress Differential Diagnoses I considered the following diagnoses in my evaluation of the patient: Plan of Care: Current Medications Sig/Yair Start time Last Medication Dose Stop Time Status Admin Acetaminophen 1,000 MG ONCE ONE 03/05 0130 CAN (Ofirmev) 03/05 0144 N/A 1 UNIT (No Carrier) Diagnostic Imaging: Discussed w/RAD: CT Scan. Radiology Impression: PATIENT: MICHELE WHITE PRESENT AGE: 37 PATIENT ACCOUNT NO: [id number] : 80 LOCATION: [facility] ORDERING PHYSICIAN: Leonel Epps MD SERVICE DATE: 03/05/18 EXAM TYPE: CAT - CT ABD & PELVIS W/O IV CONTRAS EXAMINATION: CT ABDOMEN AND PELVIS WITHOUT CONTRAST CLINICAL INFORMATION: Back pain. Concern for abdominal aortic aneurysm. COMPARISON: None TECHNIQUE: Multidetector volumetric imaging was performed from the superior aspect of the liver through the pubic symphysis. Sagittal and coronal reformatted images were obtained on the technologist's workstation. DLP: 802 mGy-cm FINDINGS: LUNG BASES: The visualized lung bases are unremarkable. Overall evaluation of the soft tissues is made limited given noncontrast technique LIVER, GALLBLADDER, AND BILIARY TREE: The liver is enlarged in size, measuring up to 21 cm. No focal hepatic lesion identified allowing for noncontrast technique. No focal hepatic lesion or biliary ductal dilatation is present. The gallbladder is unremarkable with no evidence of radiopaque gallstones, gallbladder wall thickening, or obvious pericholecystic inflammatory changes. PANCREAS: Unremarkable. SPLEEN: No focal lesion. ADRENAL GLANDS: Unremarkable. KIDNEYS AND URETERS: The kidneys are normal in size, shape, and attenuation. No hydronephrosis, hydroureter, or calculi seen. No perinephric stranding. BLADDER: Slight circumferential wall thickening of a distended bladder without regional inflammation.. GASTROINTESTINAL TRACT: Moderate distention of the stomach without evidence of wall thickening. No evidence of bowel obstruction. Diffuse colonic stool. Normal-appearing appendix in the right lower quadrant. ABDOMINAL WALL: Ill-defined fat infiltration and gas is seen with associated skin thickening involving the left ventral abdominal wall, possibly reflecting injection sites. No evidence of focal collection. LYMPH NODES: Normal. VASCULAR: Abdominal aorta is normal in caliber. Scattered atherosclerotic consultations along the iliac arterial vasculature. PELVIC VISCERA: Calcification of the seminal vesicles. OSSEOUS STRUCTURES: Unremarkable. IMPRESSION: Overall evaluation of the vasculature is made limited given noncontrast technique. The abdominal aorta is within normal limits for caliber without evidence of aneurysmal dilatation. Hepatomegaly. Slight circumferential wall thickening of a partially distended bladder, nonspecific, though correlation with urinalysis can be performed to exclude urinary tract infection. Ill-defined fat infiltration and gas involving the left ventral abdominal wall; correlate for history of injection sites at this location. No drainable fluid collection. DICTATED BY: Jude Grover MD DATE/TIME DICTATED:150 MAINTENANCE SUPERVISOR:IRIS DATE/TIME TRANSCRIBED:03/05/18150 CONFIDENTIAL, DO NOT COPY WITHOUT APPROPRIATE AUTHORIZATION. <Electronically signed in Other Vendor System> SIGNED BY: Jude Grover MD 03/05/18201 Initial ED EKG: none Comments: 03/05/2018 1:13:00 AM patient's blood sugar is 87. 03/05/2018 2:35:04 AM patient's blood sugar has remained stable. 03/05/2018 3:32:25 AM Michele's blood sugar has decreased into the 50s. He has been given a sandwich to eat. 03/05/2018 5:37:10 AM most recent fingerstick blood glucose 103. I feel patient is now stable for discharge and follow-up with his primary care physician or geology scientist. Departure Departure Disposition: HOME OR SELF CARE Condition: Stable Clinical Impression Primary Impression: Hypoglycemia Referrals: Patient Has No Primary Care Dr (PCP/Family) Additional Instructions: Maintain a consistent nutritional intake. Monitor your blood sugar levels before each meal and at bedtime. Follow-up with your primary care physician or geology scientist today. Return if any concerns or sudden worsening. Please note that there might be incidental findings in your evaluation that are unrelated to the current emergency department visit. Please notify your primary care doctor about this emergency department visit in order to obtain and review all of the testing performed so that these incidental findings can be monitored as needed. If you had an x-ray performed, please understand that some fractures or other findings may not be seen on the initial set of x-rays. If your symptoms persist you might need a repeat set of x-rays to check for such a fracture. If you had a laceration evaluated, please understand that foreign bodies such as glass or wood may not be visible to the naked eye or on plain x-rays. If the wound becomes red, swollen, increasingly more painful or if there is any drainage from the wound, please have it reevaluated by a physician for the possibility of a retained foreign body. If you're unable to follow up as outlined in the discharge instructions please return to the emergency department. Thank you for choosing the [facility] Emergency Department for your care. It was a pleasure to serve you today. Leonel Epps M.D. [facility] Departure Forms: Customer Survey General Discharge Information Critical Care Note Critical Care Note Critical Care Time: 30-74 min
--- NOTE | 2018-03-05 02:02 | CT SCAN REPORT ---
EXAMINATION: CT ABDOMEN AND PELVIS WITHOUT CONTRAST CLINICAL INFORMATION: Back pain. Concern for abdominal aortic aneurysm. COMPARISON: None TECHNIQUE: Multidetector volumetric imaging was performed from the superior aspect of the liver through the pubic symphysis. Sagittal and coronal reformatted images were obtained on the technologist's workstation. DLP: 802 mGy-cm FINDINGS: LUNG BASES: The visualized lung bases are unremarkable. Overall evaluation of the soft tissues is made limited given noncontrast technique LIVER, GALLBLADDER, AND BILIARY TREE: The liver is enlarged in size, measuring up to 21 cm. No focal hepatic lesion identified allowing for noncontrast technique. No focal hepatic lesion or biliary ductal dilatation is present. The gallbladder is unremarkable with no evidence of radiopaque gallstones, gallbladder wall thickening, or obvious pericholecystic inflammatory changes. PANCREAS: Unremarkable. SPLEEN: No focal lesion. ADRENAL GLANDS: Unremarkable. KIDNEYS AND URETERS: The kidneys are normal in size, shape, and attenuation. No hydronephrosis, hydroureter, or calculi seen. No perinephric stranding. BLADDER: Slight circumferential wall thickening of a distended bladder without regional inflammation.. GASTROINTESTINAL TRACT: Moderate distention of the stomach without evidence of wall thickening. No evidence of bowel obstruction. Diffuse colonic stool. Normal-appearing appendix in the right lower quadrant. ABDOMINAL WALL: Ill-defined fat infiltration and gas is seen with associated skin thickening involving the left ventral abdominal wall, possibly reflecting injection sites. No evidence of focal collection. LYMPH NODES: Normal. VASCULAR: Abdominal aorta is normal in caliber. Scattered atherosclerotic consultations along the iliac arterial vasculature. PELVIC VISCERA: Calcification of the seminal vesicles. OSSEOUS STRUCTURES: Unremarkable. IMPRESSION: Overall evaluation of the vasculature is made limited given noncontrast technique. The abdominal aorta is within normal limits for caliber without evidence of aneurysmal dilatation. Hepatomegaly. Slight circumferential wall thickening of a partially distended bladder, nonspecific, though correlation with urinalysis can be performed to exclude urinary tract infection. Ill-defined fat infiltration and gas involving the left ventral abdominal wall; correlate for history of injection sites at this location. No drainable fluid collection.
[2018-03-05 05:57] VITALS: BP 172/89
== END 2018-03-05 06:54 ==
LOC: ERH 00:31
DX: E11.649 Type 2 diabetes mellitus with hypoglycemia without coma (principal); Z79.4 Long term (current) use of insulin; M54.9 Dorsalgia, unspecified; I10 Essential (primary) hypertension
CPT/HCPCS: 74176